=== PATIENT | male | born 1945 ===

== ENCOUNTER 2021-01-07 | Outpatient (CLI) | payer OTHER | END 2021-01-18 14:15 | disposition home or self-care (01) | LOC: PPH VACUNA | PROVIDERS: ATTEND Emergency Medicine Pediatric Emergency Medicine | DX: Z23 Encounter for immunization (principal) ==

== ENCOUNTER 2021-09-16 08:11 | Outpatient (CLI) | payer OTHER | END 2021-09-16 08:18 | disposition home or self-care (01) | LOC: RX STUDY 08:11 | PROVIDERS: ATTEND Surgery | DX: K21.9 Gastro-esophageal reflux disease without esophagitis (principal) ==